=== PATIENT | female | born 1945 | race Two or more races ===

== ENCOUNTER 2024-06-07 13:56 | Emergency (ER) | payer OTHER ==
[~2024-06-07] VITALS: Ht 162.6 cm; Wt 56.7 kg
[2024-06-07 15:34] VITALS: BP 132/84; O2SAT 98
[2024-06-07] MEDS ORDERED: KAPSPARGO SPRIN50 MG (15:34)
[2024-06-07] MEDS ORDERED: SYNTHROID112 MCG (15:34)
[2024-06-07] MEDS ORDERED: KETOROLAC TROMETHAMINE 60 MG VIAL IM ONE ×2 (21:45)
[2024-06-07] MEDS ORDERED: DEXAMETHASONE SODIUM PHOSPHATE 4 MG/ML VIAL IM ONE (21:45)
[2024-06-07] MEDS ORDERED: DEXAMETHASONE SODIUM PHOSPHATE 4 MG/ML VIAL ONE (21:45)
[2024-06-07] MEDS ORDERED: ACETAMINOPHEN500 M1 PO (21:49)
== END 2024-06-07 21:51 | disposition home or self-care (01) ==
LOC: ER 13:58
DX: S09.8XXA Other specified injuries of head, initial encounter (principal); W19.XXXA Unspecified fall, initial encounter; Y93.89 Activity, other specified; Y92.091 Bathroom in other non-institutional residence as the place of occurrence of the external cause; Y99.8 Other external cause status; E03.8 Other specified hypothyroidism; I10 Essential (primary) hypertension
CPT/HCPCS: 70450; 96372; 99284; J1100; J1885